=== PATIENT | female | born 1995 | race African-American/Black ===

== ENCOUNTER 2020-06-08 08:45 | Emergency (ER) | payer SELFPAY ==
[~2020-06-08] VITALS: Ht 157.5 cm; Wt 72.6 kg
[2020-06-08 08:51] VITALS: BP 126/74
[2020-06-08] MEDS ORDERED: IBUPROFEN 800 MG TAB PO ONE (09:30)
== END 2020-06-08 09:42 | disposition home or self-care (01) ==
LOC: ER 08:45
DX: K04.7 Periapical abscess without sinus (principal); N30.00 Acute cystitis without hematuria; F17.210 Nicotine dependence, cigarettes, uncomplicated

== ENCOUNTER 2020-06-23 09:19 | Emergency (ER) | payer SELFPAY ==
[~2020-06-23] VITALS: Ht 157.5 cm; Wt 72.6 kg
[2020-06-23 13:06] LABS: Basophils # (auto) 0 10 ^3/uL (0-0.2); Basophils % (auto) 0.3 % (0.0-2.0); Eosinophils # (auto) 0.2 10 ^3/uL (0-0.8); Eosinophils % (auto) 2.4 % (0.0-7.0); Hematocrit 36.2 % (36.0-46.0); Hemoglobin 12.1 g/dL (12.2-16.2); Lymphocytes # (auto) 0.9 10 ^3/uL (0.4-5.4); Lymphocytes % (auto) 12.3 % (10.0-50.0); Mean Corpuscular Hemoglobin 28.7 pg (28.0-32.0); Mean Corpuscular Hgb Conc. 33.5 g/dL (32.0-36.0); Mean Corpuscular Volume 85.8 fL (80.0-100.0); Monocytes # (auto) 0.6 10 ^3/uL (0-1.3); Neutrophils # (auto) 5.3 10 ^3/uL (1.6-8.6); Platelet Count (auto) 406 10^3/uL (140-450); Red Blood Cells 4.22 10^6/uL (4.0-5.20); Red Cell Distribution Width 13.8 % (11.8-14.3); White Blood Cell 6.9 10^3/uL (4.4-10.8)
[2020-06-23 13:23] LABS: Albumin 3.3 g/dL (3.4-5.0); Anion Gap 9 (5-15); Blood Urea Nitrogen 5 mg/dL (7-18); Calcium 8.7 mg/dL (8.5-10.1); Carbon Dioxide 23 mmol/L (21-32); Chloride 103 mmol/L (98-107); Glucose 88 mg/dL (74-106); Potassium 3.6 mmol/L (3.5-5.1); Sodium 135 mmol/L (136-145)
[2020-06-23 13:25] LABS: Alanine Aminotransferase 12 U/L (13-56); Aspartate Aminotransferase 9 U/L (15-37); BUN/Creatinine Ratio 9.8; Blood Alcohol < 3.0 mg/dL (0-5); GFR African American 191 mL/min; GFR Non-African American 157 mL/min
[2020-06-23 13:28] LABS: Alkaline Phosphatase 58 U/L (45-117); Bilirubin, Total 0.2 mg/dL (0.2-1.0); Total Protein 8.5 g/dL (6.4-8.2)
[2020-06-23] MEDS ORDERED: levETIRAcetam 500 MG/5ML INJ IV ONE (14:20)
[2020-06-23] MEDS ORDERED: KETOROLAC TROMETH 30 MG/ML 1ML VIAL IV ONE (15:00)
[2020-06-23 16:36] VITALS: BP 102/61
[2020-06-23] MEDS ORDERED: ACETAMINOPHEN 325 MG TAB PO ONE (16:45)
[2020-06-23 17:17] LABS: Alcohol, Urine < 3.0 mg/dL (0-10); Amphetamine Screen, Urine NEGATIVE (NEGATIVE); Barbiturate Scree,Urine NEGATIVE (NEGATIVE); Benzodiazephine Screen, Urine NEGATIVE (NEGATIVE); Cannabinoid Screen, Urine POSITIVE (NEGATIVE); Cocaine Screen, Urine POSITIVE (NEGATIVE); Opiate Scree,Urine NEGATIVE (NEGATIVE); Phencyclidine Screen, Urine NEGATIVE (NEGATIVE)
== END 2020-06-23 17:20 | disposition home or self-care (01) ==
LOC: ER 09:19
DX: G40.802 Other epilepsy, not intractable, without status epilepticus (principal); F15.129 Other stimulant abuse with intoxication, unspecified; F17.210 Nicotine dependence, cigarettes, uncomplicated
CPT/HCPCS: 36415; 70450; 80053; 80307; 80320; 84702; 85025; 99285; J1953; J7060